=== PATIENT | male | born 1975 | race Caucasian/White ===

== ENCOUNTER 2022-04-27 12:13 | Inpatient (IN) | payer BC ==
[~2022-04-27] VITALS: Ht 182.8 cm; Wt 63.5 kg
[~2022-04-27 12:13] MED LIST: ATARAX,VISTARIL50 MG PO; ATIVAN1 MG PO; CELEXA40 MG PO; DICYCLOMINE HCL20 MG PO; NKHM; ONDANSETRON HYDR4 M1 PO; PRILOSEC40 MG PO; SEPTRA DS 800 M1 TAB PO; SEROQUEL XR400 MG PO; SEROQUEL50 MG PO; SINEMET 25-100M1 TAB PO; VICODIN 500 MG-1 TAB PO
[2022-04-27 12:14] VITALS: BP 119/68
[2022-04-27 13:23] LABS: BASO # 0.1 10*3/uL (0.0-0.1); BASO % 0.7 % (0.0-1.0); EOS % 0.3 % (1.0-4.0); HEMATOCRIT 46.5 % (42.0-52.0); LYMPH # 1.4 10*3/uL (1.3-4.4); LYMPH % 20.7 % (27.0-41.0); MEAN CELL VOLUME 94.9 fl (80.0-94.0); MEAN CORPUSCULAR HGB 32.7 pg (27.0-31.0); MEAN CORPUSCULAR HGB CONC 34.4 g/dl (33.0-37.0); MEAN PLATELET VOLUME 10.6 fl (9.6-12.3); MONO # 0.7 10*3/uL (0.1-1.0); MONO % 9.7 % (3.0-9.0); NEUT # 4.7 10*3/uL (2.3-7.9); NEUT % 68.5 % (47.0-73.0); PLATELET COUNT AUTOMATED 184 10*3/uL (130-400); RED CELL DISTRI WIDTH 14.1 % (0-14.5); WHITE BLOOD COUNT 6.9 10*3/uL (4.8-10.8)
[2022-04-27 13:41] LABS: ALKALINE PHOSPHATASE 106 U/L (46-116); BUN 6 mg/dl (9-23); CHLORIDE 102 mmol/L (98-107); CREATININE 0.73 mg/dL (0.70-1.30); ETHYL ALCOHOL < 3.0 mg/dl (<3); POTASSIUM 3.4 mmol/L (3.4-5.1); SGPT/ALT 20 U/L (10-49); SODIUM 140 mmol/L (136-145); TOTAL PROTEIN 7.8 gm/dL (6.0-8.0)
[2022-04-27 14:37] LABS: URINE AMPHETAMINES Positive (1000ng/ml); URINE BARBITURATES Negative (200ng/ml); URINE BENZODIAZEPINES Negative (200ng/ml); URINE CANNABINOIDS (THC) Negative (50ng/ml); URINE COCAINE Negative (300ng/ml); URINE METHADONE Negative (300ng/ml); URINE OPIATES Negative (300ng/ml); URINE PHENCYCLIDINE Negative (25ng/ml)
[2022-04-28 06:23] LABS: BASO # 0.1 10*3/uL (0.0-0.1); BASO % 1.1 % (0.0-1.0); EOS # 0.1 10*3/uL (0.0-0.4); EOS % 2.7 % (1.0-4.0); HEMATOCRIT 45.9 % (42.0-52.0); LYMPH # 1.4 10*3/uL (1.3-4.4); LYMPH % 31.5 % (27.0-41.0); MEAN CELL VOLUME 96.4 fl (80.0-94.0); MEAN CORPUSCULAR HGB CONC 34.2 g/dl (33.0-37.0); MEAN PLATELET VOLUME 11.2 fl (9.6-12.3); MONO # 0.6 10*3/uL (0.1-1.0); MONO % 12.4 % (3.0-9.0); NEUT # 2.3 10*3/uL (2.3-7.9); NEUT % 52.1 % (47.0-73.0); PLATELET COUNT AUTOMATED 149 10*3/uL (130-400); RED BLOOD COUNT 4.76 10*6/uL (4.50-5.90); RED CELL DISTRI WIDTH 13.9 % (0-14.5); WHITE BLOOD COUNT 4.5 10*3/uL (4.8-10.8)
[2022-04-28 06:49] LABS: ALKALINE PHOSPHATASE 93 U/L (46-116); BUN 8 mg/dl (9-23); CHLORIDE 104 mmol/L (98-107); CHOLESTEROL 205 mg/dL (<200); CREATININE 0.78 mg/dL (0.70-1.30); FREE T4 1.61 ng/dl (0.89-1.76); LDL CHOLESTEROL 115 mg/dL (9-159); POTASSIUM 3.8 mmol/L (3.4-5.1); SGPT/ALT 17 U/L (10-49); SODIUM 140 mmol/L (136-145); THYROID STIM HORMONE (HS) 3.476 uIU/ml (0.550-4.780); TOTAL PROTEIN 6.8 gm/dL (6.0-8.0); TRIGLYCERIDES 124 mg/dl (<150)
[2022-04-28 07:37] VITALS: BP 122/780
[2022-04-28 10:31] LABS: VITAMIN D, 25-HYDROXY 15.1 ng/mL (30-100)
== END 2022-04-28 11:03 | disposition left against medical advice (07) | DRG 880 ==
LOC: ED 12:13 → EDHOLD 14:05
PROVIDERS: Student in an Organized Health Care Education/Training Program; ADMIT Internal Medicine; ATTEND Internal Medicine
DX: F41.0 Panic disorder [episodic paroxysmal anxiety] (principal); F10.139 Alcohol abuse with withdrawal, unspecified; F32.9 Major depressive disorder, single episode, unspecified; F17.210 Nicotine dependence, cigarettes, uncomplicated; Y90.0 Blood alcohol level of less than 20 mg/100 ml; K21.9 Gastro-esophageal reflux disease without esophagitis; Z53.29 Procedure and treatment not carried out because of patient's decision for other reasons; F19.10 Other psychoactive substance abuse, uncomplicated; Z83.3 Family history of diabetes mellitus; Z79.899 Other long term (current) drug therapy